=== PATIENT | male | born 1980 | race Two or more races ===

== ENCOUNTER 2019-04-17 05:48 | Day surgery (SDC) | payer OTHER ==
[~2019-04-17 05:48] MED LIST: BACLOFEN10 MG PO; DITROPAN XL10 MG PO; VALIUM PO
[2019-04-17] MEDS ORDERED: PERCOCET 5-3251 EACH PO (08:49)
[2019-04-17] MEDS ORDERED: DIBUCAINE30 GM TOP (08:50)
== END 2019-04-17 11:25 | disposition home or self-care (01) ==
LOC: CIR.AMB 05:48
DX: K60.1 Chronic anal fissure (principal)

== ENCOUNTER 2020-11-30 06:36 | Day surgery (SDC) | payer OTHER ==
[~2020-11-30 06:36] MED LIST changes: +DIBUCAINE30 GM TOP; +PERCOCET 5-3251 EACH PO
== END 2020-11-30 10:10 | disposition home or self-care (01) ==
LOC: AMB-ENDOS 06:36
PROVIDERS: ATTEND Surgery
DX: D12.5 Benign neoplasm of sigmoid colon (principal); K64.8 Other hemorrhoids; Z20.822 Contact with and (suspected) exposure to COVID-19